=== PATIENT | female | born 1955 | race Caucasian/White ===

== ENCOUNTER → 2016-12-21 | Outpatient (CLI) | payer OTHER ==
[~2016-12-21] MED LIST: ACETAMINOPHEN325 M1 PO; ALPRAZOLAM ER1 MG PO; ALPRAZOLAM1 MG PO; AMANTADINE100 M1 PO; AMBIEN 5 MG TABL5 M1 PO; AMOXICILLIN875 MG PO; ANALPRAM-HC 2.530 GM RE; ASPIRIN EC325 M1 PO; ASPIRIN325 PO; ASPIRIN325 SL; AUGMENTIN 875875 MG PO; BACTRIM DS TAB1 EACH PO; BENTYL 20 MG TA20 M1 PO; BISACODYL SUPP10 MG RE; BUTALB-ACETAMI1 EAC2 PO; CALCIUM CARBON500 M3 PO; CHLORDIAZEPOXID25 M1 PO; CLEOCIN HCL300 MG PO; COLACE 100 MG100 MG PO; COLACE100 MG PO; COUMADIN 1MG TAB1 M1 PO; COUMADIN 4 MG TA4 M1 PO; COUMADIN 5 MG TA5 M1; COUMADIN7.5 MG PO; CYMBALTA60 MG PO; DAYPRO600 MG PO; DEEP SEA NASAL44 M1 NS; DESYREL100 MG PO; DESYREL50 MG PO; DETROL LA4 MG PO; DITROPAN XL10 M1 PO; DOLOPHINE HCL10 MG PO; DUONEB 2.5-0.5 M3 ML; ENOXAPARIN100 MG/11 SUBQ; ENOXAPARIN80 MG/0.8 SUBQ; FLEXERIL PO; FOSAMAX 70 MG T70 MG PO; GENTAMICIN SU3 MG/ML OPHTHALMIC; GLYCOLAX POWDER17 G1 PO; GLYCOLAX255 GM PO; HYDROCODON-ACE1 EAC7 PO; KEFLEX500 M1 PO; KEFLEX500 MG PO; LEVAQUIN 500 M500 MG PO; LOPRESSOR25 PO; MAG DELAY64 MG PT; MAGOX 400400 MG; METHADONE; METHADONE HCL 110 M1 PO; MIRALAX17 GM PO; NORCO 5-325 TA1 EACH PO; ORAMORPH SR30 M1 PO; PERCOCET 10-321 EACH PO; PERCOCET 5-3251 EACH PO; PREDNISONE 10 M10 M1 PO; PROAIR HFA8.5 GM IH; PROMETHAZINE-C120 ML PO; PROTONIX40 M2 PO; ROBAXIN 750 MG750 M1 PO; SANCTURA20 MG PO; SAVELLA12.5 MG PO; SENNA PO; SEROQUEL 25 MG25 MG PO; SUBOXONE 8 MG-1 EAC2 PO; TRAZODONE 150150 M1 PO; TRAZODONE HCL100 MG PO; ULTRA-LIGHT RO1 EACH MC; VENTOLIN HFA 1818 GM INH; VITAMIN B-12100 MC1 PO; VITAMIN C500 M1 PO; VITAMIN D 5050000 I1 PO; VITAMIN D1000 UNI1 PO; XANAX 0.5 MG0.5 M1 PO
== END ==
LOC: ULTRA 15:06
DX: M79.89 Other specified soft tissue disorders (principal); M79.604 Pain in right leg

== ENCOUNTER 2017-02-13 18:38 | Emergency (ER) | payer OTHER ==
[~2017-02-13] VITALS: Ht 152.4 cm; Wt 65.8 kg
[2017-02-13 20:42] VITALS: BP 171/106
== END 2017-02-13 20:43 | disposition home or self-care (01) ==
LOC: ER 18:38
DX: S81.811A Laceration without foreign body, right lower leg, initial encounter (principal); G35 Multiple sclerosis; M06.9 Rheumatoid arthritis, unspecified; G43.909 Migraine, unspecified, not intractable, without status migrainosus; K21.9 Gastro-esophageal reflux disease without esophagitis; F32.9 Major depressive disorder, single episode, unspecified; F41.9 Anxiety disorder, unspecified; N19 Unspecified kidney failure; Z87.891 Personal history of nicotine dependence; W45.8XXA Other foreign body or object entering through skin, initial encounter; Y93.89 Activity, other specified; Y92.89 Other specified places as the place of occurrence of the external cause; Y99.9 Unspecified external cause status

== ENCOUNTER 2017-07-29 20:15 | Emergency (ER) | payer OTHER ==
[~2017-07-29] VITALS: Ht 157.5 cm; Wt 68.0 kg
[~2017-07-29 20:15] MED LIST changes: +ACETAMINOPHEN-1 EAC1 PO; +LAMICTAL 25 MG25 M1 PO; +NITROGLYCERIN0.4 MG SUBLING
[2017-07-29 22:01] VITALS: BP 146/84
== END 2017-07-29 22:01 | disposition home or self-care (01) ==
LOC: ER 20:15
DX: S81.811A Laceration without foreign body, right lower leg, initial encounter (principal); G35 Multiple sclerosis; M06.9 Rheumatoid arthritis, unspecified; F32.9 Major depressive disorder, single episode, unspecified; F41.9 Anxiety disorder, unspecified; G43.909 Migraine, unspecified, not intractable, without status migrainosus; K21.9 Gastro-esophageal reflux disease without esophagitis; Z86.711 Personal history of pulmonary embolism; Z86.718 Personal history of other venous thrombosis and embolism; Z86.14 Personal history of Methicillin resistant Staphylococcus aureus infection; Z96.642 Presence of left artificial hip joint; Z87.442 Personal history of urinary calculi; Z87.891 Personal history of nicotine dependence; W26.9XXA Contact with unspecified sharp object(s), initial encounter; Y93.89 Activity, other specified; Y92.89 Other specified places as the place of occurrence of the external cause; Y99.8 Other external cause status

== ENCOUNTER 2017-08-20 18:22 | Emergency (ER) | payer OTHER ==
[~2017-08-20] VITALS: Ht 152.4 cm; Wt 70.3 kg
[2017-08-20 18:52] LABS: URINE BILIRUBIN NEGATIVE (Negative); URINE BLOOD NEGATIVE (Negative); URINE COLOR YELLOW; URINE GLUCOSE-RANDOM* NEGATIVE (Negative); URINE KETONES NEGATIVE (Negative); URINE NITRITE NEGATIVE (Negative); URINE PROTEIN (DIPSTICK) TRACE (Negative); URINE SPECIFIC GRAVITY >= 1.030 (1.003-1.035); URINE UROBILINOGEN 0.2 E.U./dl (0.2-1.0)
[2017-08-20] MEDS ORDERED: COUMADIN 4 MG TA4 M1 PO (18:53)
[2017-08-20 19:13] LABS: ABSOLUTE NEUTROPHILS 3.7 thou/uL (1.4-8.2); BASOPHILS 0.7 % (0.0-2.0); EOSINOPHILS 0.3 % (0.0-3.0); HEMATOCRIT 40.6 % (37.0-47.0); HEMOGLOBIN 13.6 gm/dL (12.0-15.0); LYMPHOCYTES 23.2 % (24.0-44.0); MCH 31.9 pg (26.0-34.0); MCHC 33.5 g/dL (28.0-37.0); MCV 95.1 fL (80.0-100.0); MONOCYTES 6.6 % (1.0-8.0); PLATELET COUNT 130 thou/uL (150-400); POLYS 69.2 % (36.0-66.0); RBC 4.27 mil/uL (4.20-5.00); RDW 14.2 % (10.5-14.5); WBC 5.3 thou/uL (4.0-11.0)
[2017-08-20 19:14] LABS: MANUAL DIFF NO
[2017-08-20 19:57] LABS: ALBUMIN 3.4 g/dL (3.4-5.0); CALCIUM 7.7 mg/dL (8.5-10.1); CREATININE 0.7 mg/dL (0.6-1.0); POTASSIUM 4.2 mmol/L (3.5-5.1); TOTAL BILIRUBIN 0.3 mg/dL (<0.1-1.0); TOTAL PROTEIN 5.5 g/dL (6.4-8.2)
[2017-08-20 21:27] VITALS: BP 121/78
== END 2017-08-20 21:27 | disposition home or self-care (01) ==
LOC: ER 18:22
PROVIDERS: Physician Assistant
DX: G43.909 Migraine, unspecified, not intractable, without status migrainosus (principal); G35 Multiple sclerosis; M06.9 Rheumatoid arthritis, unspecified; F32.9 Major depressive disorder, single episode, unspecified; F41.9 Anxiety disorder, unspecified; K21.9 Gastro-esophageal reflux disease without esophagitis; Z86.711 Personal history of pulmonary embolism; Z86.718 Personal history of other venous thrombosis and embolism; Z86.14 Personal history of Methicillin resistant Staphylococcus aureus infection; Z96.642 Presence of left artificial hip joint; Z87.442 Personal history of urinary calculi; Z87.891 Personal history of nicotine dependence

== ENCOUNTER 2018-06-02 13:23 | Emergency (ER) | payer OTHER ==
[~2018-06-02] VITALS: Ht 160 cm; Wt 68.0 kg
--- NOTE | ~2018-06-02 | EKG ---
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
[~2018-06-02 13:23] MED LIST changes: +LIDOCAINE1 EACH TRANSDERM
[2018-06-02 13:57] LABS: ABSOLUTE NEUTROPHILS 1.5 thou/uL (1.4-8.2); BASOPHILS 1.5 % (0.0-2.0); EOSINOPHILS 0.3 % (0.0-3.0); HEMOGLOBIN 13.9 gm/dL (12.0-15.0); LYMPHOCYTES 44.7 % (24.0-44.0); MCH 30.4 pg (26.0-34.0); MCHC 33.1 g/dL (28.0-37.0); MCV 91.8 fL (80.0-100.0); MONOCYTES 7.2 % (1.0-8.0); PLATELET COUNT 205 thou/uL (150-400); POLYS 46.3 % (36.0-66.0); RBC 4.57 mil/uL (4.20-5.00); WBC 3.2 thou/uL (4.0-11.0)
[2018-06-02 14:12] LABS: APTT 58.3 Seconds (24.5-32.8); INR 4.5; PROTIME 45.4 Seconds (9.3-11.4)
[2018-06-02 14:14] LABS: CALCIUM 8.3 mg/dL (8.5-10.1); CREATININE 1.1 mg/dL (0.6-1.0)
[2018-06-02 14:45] LABS: URINE BILIRUBIN NEGATIVE (Negative); URINE BLOOD NEGATIVE (Negative); URINE CLARITY CLEAR; URINE COLOR YELLOW; URINE GLUCOSE-RANDOM* NEGATIVE (Negative); URINE KETONES NEGATIVE (Negative); URINE LEUKOCYTES NEGATIVE (Negative); URINE NITRITE NEGATIVE (Negative); URINE PROTEIN (DIPSTICK) NEGATIVE (Negative); URINE SPECIFIC GRAVITY 1.025 (1.005-1.035); URINE UROBILINOGEN 0.2 E.U./dl (0.2-1.0)
[2018-06-02 17:50] VITALS: BP 118/76
== END 2018-06-02 18:41 | disposition home or self-care (01) ==
LOC: ER 13:23
PROVIDERS: Emergency Medicine
DX: R41.82 Altered mental status, unspecified (principal); E86.0 Dehydration; F32.9 Major depressive disorder, single episode, unspecified; G35 Multiple sclerosis; M06.9 Rheumatoid arthritis, unspecified; F41.9 Anxiety disorder, unspecified; G43.909 Migraine, unspecified, not intractable, without status migrainosus; K21.9 Gastro-esophageal reflux disease without esophagitis; Z87.891 Personal history of nicotine dependence

== ENCOUNTER 2018-08-21 18:53 | Emergency (ER) | payer OTHER ==
[~2018-08-21] VITALS: Ht 152.4 cm; Wt 67.1 kg
[~2018-08-21 18:53] MED LIST changes: +DOXEPIN 10 MG C10 MG PO
[2018-08-21] MEDS ORDERED: NORCO 10-325 T1 EACH PO (22:07)
[2018-08-21] MEDS ORDERED: ONDANSETRON HCL4 M2 PO (22:18)
[2018-08-21 22:50] VITALS: BP 119/70
== END 2018-08-21 22:00 | disposition home or self-care (01) ==
LOC: ER 18:53
DX: S60.222A Contusion of left hand, initial encounter (principal); M06.9 Rheumatoid arthritis, unspecified; M25.532 Pain in left wrist; Z87.891 Personal history of nicotine dependence; Z86.718 Personal history of other venous thrombosis and embolism; Z96.642 Presence of left artificial hip joint; F32.9 Major depressive disorder, single episode, unspecified; F41.9 Anxiety disorder, unspecified; G43.909 Migraine, unspecified, not intractable, without status migrainosus; K21.9 Gastro-esophageal reflux disease without esophagitis; Z87.442 Personal history of urinary calculi; W01.0XXA Fall on same level from slipping, tripping and stumbling without subsequent striking against object, initial encounter; Y92.89 Other specified places as the place of occurrence of the external cause; Y93.89 Activity, other specified; Y99.8 Other external cause status

== ENCOUNTER 2019-04-30 12:49 | Emergency (ER) | payer OTHER ==
[~2019-04-30] VITALS: Ht 152.4 cm; Wt 68.0 kg
[~2019-04-30 12:49] MED LIST changes: +NORCO 10-325 T1 EACH PO; +ONDANSETRON HCL4 M2 PO
[2019-04-30] MEDS ORDERED: ONDANSETRON HCL4 M2 PO (16:16)
[2019-04-30 16:40] VITALS: BP 120/77
== END 2019-04-30 16:27 ==
LOC: ER 12:49
DX: M25.552 Pain in left hip (principal); R11.0 Nausea; G35 Multiple sclerosis; F32.9 Major depressive disorder, single episode, unspecified; F41.9 Anxiety disorder, unspecified; G43.909 Migraine, unspecified, not intractable, without status migrainosus; K21.9 Gastro-esophageal reflux disease without esophagitis; Z87.891 Personal history of nicotine dependence; Z86.711 Personal history of pulmonary embolism; Z86.718 Personal history of other venous thrombosis and embolism; M06.9 Rheumatoid arthritis, unspecified; Z86.14 Personal history of Methicillin resistant Staphylococcus aureus infection; Z96.642 Presence of left artificial hip joint; Z87.442 Personal history of urinary calculi

== ENCOUNTER 2019-12-04 19:59 | Emergency (ER) | payer OTHER ==
[~2019-12-04] VITALS: Ht 149.9 cm; Wt 70.3 kg
[2019-12-04 21:30] LABS: HEMATOCRIT 38.8 % (37.0-47.0); HEMOGLOBIN 12.6 gm/dL (12.0-15.0); MCH 30.2 pg (26.0-34.0); MCHC 32.4 g/dL (28.0-37.0); MCV 93.2 fL (80.0-100.0); RBC 4.16 mil/uL (4.20-5.00); RDW 14.6 % (10.5-14.5); WBC 4.6 thou/uL (4.0-11.0)
[2019-12-04 21:36] LABS: CALCIUM 9.7 mg/dL (8.5-10.1); POTASSIUM 3.7 mmol/L (3.5-5.1)
[2019-12-04 21:53] LABS: PROTIME 80.7 Seconds (9.3-11.4)
[2019-12-04 22:03] LABS: INR 7.8
[2019-12-05 00:22] VITALS: BP 108/83
== END 2019-12-05 00:25 | disposition home or self-care (01) ==
LOC: ER 19:59
PROVIDERS: Emergency Medicine
DX: S00.03XA Contusion of scalp, initial encounter (principal); M54.2 Cervicalgia; R79.1 Abnormal coagulation profile; K21.9 Gastro-esophageal reflux disease without esophagitis; G43.909 Migraine, unspecified, not intractable, without status migrainosus; G35 Multiple sclerosis; M06.9 Rheumatoid arthritis, unspecified; F32.9 Major depressive disorder, single episode, unspecified; F41.9 Anxiety disorder, unspecified; Z86.14 Personal history of Methicillin resistant Staphylococcus aureus infection; Z96.642 Presence of left artificial hip joint; Z86.711 Personal history of pulmonary embolism; Z86.718 Personal history of other venous thrombosis and embolism; Z87.442 Personal history of urinary calculi; Z87.891 Personal history of nicotine dependence; W18.39XA Other fall on same level, initial encounter; Y93.89 Activity, other specified; Y92.89 Other specified places as the place of occurrence of the external cause; Y99.8 Other external cause status

== ENCOUNTER 2020-01-02 08:57 | Inpatient (IN) | payer OTHER ==
[~2020-01-02] VITALS: Ht 152.4 cm; Wt 81.0 kg
[2020-01-02 08:58] VITALS: BP 161/76
[2020-01-02 09:22] LABS: ABSOLUTE NEUTROPHILS 4.1 thou/uL (1.4-8.2); BASOPHILS 0.7 % (0.0-2.0); EOSINOPHILS 0.4 % (0.0-3.0); HEMATOCRIT 40.8 % (37.0-47.0); HEMOGLOBIN 13.3 gm/dL (12.0-15.0); LYMPHOCYTES 24.5 % (24.0-44.0); MCH 30.3 pg (26.0-34.0); MCHC 32.5 g/dL (28.0-37.0); MCV 93.3 fL (80.0-100.0); MONOCYTES 6.6 % (1.0-8.0); PLATELET COUNT 207 thou/uL (150-400); POLYS 67.8 % (36.0-66.0); RBC 4.38 mil/uL (4.20-5.00); RDW 14.6 % (10.5-14.5)
[2020-01-02] MEDS ORDERED: COUMADIN 5 MG TA5 M1 PO (09:29)
[2020-01-02] MEDS ORDERED: FLEXERIL PO (09:31)
[2020-01-02 09:32] LABS: CALCIUM 9.1 mg/dL (8.5-10.1); CREATININE 0.9 mg/dL (0.6-1.0)
[2020-01-02 09:43] LABS: APTT 51.6 Seconds (24.5-32.8)
[2020-01-02 09:45] LABS: INR 5.6
[2020-01-02 11:14] VITALS: BP 139/81
[2020-01-02] MEDS ORDERED: PROTONIX40 M1 PO (15:38)
[2020-01-02] MEDS ORDERED: FIBER GUMMIES1 EACH PO (15:41)
[2020-01-02] MEDS ORDERED: SLOW-MAG64 M1 PO (15:44)
--- NOTE | 2020-01-02 18:45 | NUR ---
PT RECEIVED AT 1445 FROM THE ER ALERT AND IN NO ACUTE DISTRESS. ASSESSED AND ORIENTED TO UNIT. DR. BLISS NOTIFIED PT IN ROOM AND NEW ORDERS OBTAINED. CONSULT CALLED TO DR. DE LA CRUZ. PT WENT FOR CT ABD TO CHECK FOR BLEEDING AND WAS NEGATIVE. IV DILAUDID GIVEN FOR PAIN.
[2020-01-02 22:00] VITALS: BP 114/62
[2020-01-03 04:40] VITALS: BP 109/71
--- NOTE | 2020-01-03 06:05 | NUR ---
ASSUMED PT CARE AT 1900. PT REPORTS SEVERE PAIN 09/03. DR DE LA CRUZ UP TO SEE PT, RESTARTED HOME MEDS. PT TAKES METHADONE TID FOR YEARS, ITS WHAT WORKS BEST FOR HER CHRONIC PAIN. PAIN MEDS GIVEN, PROVIDED SOME RELIEF. GIVEN A SANDWICH, PT TOLERATED WELL. FAMILY AT BEDSIDE AT BEGINNING OF SHIFT. PT NOW SLEEPING IN BED, WILL CONTINUE TO MONITOR.
[2020-01-03 06:10] LABS: HEMATOCRIT 38.2 % (37.0-47.0); HEMOGLOBIN 12.3 gm/dL (12.0-15.0); MCH 30.3 pg (26.0-34.0); MCHC 32.1 g/dL (28.0-37.0); MCV 94.3 fL (80.0-100.0); RBC 4.05 mil/uL (4.20-5.00); RDW 15.6 % (10.5-14.5); WBC 6.1 thou/uL (4.0-11.0)
[2020-01-03 06:16] LABS: PROTIME 11.3 Seconds (9.3-11.4)
[2020-01-03 06:40] LABS: INR 1.1
[2020-01-03 06:49] LABS: CREATININE 0.8 mg/dL (0.6-1.0); MAGNESIUM 1.6 mg/dL (1.8-2.4); PHOSPHORUS 4.2 mg/dL (2.5-4.9); POTASSIUM 4.4 mmol/L (3.5-5.1)
[2020-01-03 09:09] VITALS: BP 122/71
--- NOTE | 2020-01-03 14:30 | NUR ---
PT ASSESSED AT START OF SHIFT. STATES SHE'S FEELING A LITTLE BIT BETTER TODAY AND CAN TELL IT'S GETTING EASIER TO TAKE DEEPER BREATHS. DR. BLISS IN THIS AM TO SEE PT AND TOLD HER SHE COULD GO HOME TOMORROW AND WOULD RESTART HER COUMADIN DOSE TODAY. ENC PT TO USE WALKER WHEN UP AND SHE STATES IT DOES HELP TO USE IT. EATING AND DRINKING WELL. TRANSFERRED TO [facility] RM 407 PER W/C W/ ALL BELONGINGS AT THIS TIME.
[2020-01-03 19:50] VITALS: BP 124/72
--- NOTE | 2020-01-03 20:25 | NUR ---
PT TRANSFERRED TO UNIT VIA WHEELCHAIR BY 4S UNIT STAFF. FALL PRECAUTIONS IMPLEMENTED. DISCUSSED PAIN MANAGEMENT WITH PATIENT. NOTIFIED PROVIDER THAT PAIN MEDICATION NOT RESOLVING PAIN, ORDERS RECEIVED AND IMPLEMENTED. PT REPORTS PAIN MANAGED AND IMPROVED WITH NEW ORDERS. PT UP WITH 1 PERSON ASSIST TO BATHROOM USING WALKER. CALLS FOR ASSIST APPROPRIATELY.
--- NOTE | 2020-01-04 04:44 | NUR ---
PATIENT ALERT AND ORIENTED X4. UP WITH ONE ASSIST TO BATHROOM WITH WALKER. MEDICATED FOR PAIN, ANXIETY AND GIVEN A MUSCLE RELAXER DURING THE NIGHT. COOPERATIVE AND PLEASANT. SUTURES REMAIN IN PLACE UNDER HER CHIN, STATED THAT THEY ARE STARTING TO ITCH. IVF INFUSING W/O COMPLICATION. COUMADIN WAS ON HOLD AND IS BEING MONITORED. RESTING QUIETLY AT TIME OF NOTE. WILL MONITOR.
[2020-01-04 07:16] VITALS: BP 110/78
[2020-01-04] MEDS ORDERED: MIRALAX17 GM PO (10:18)
[2020-01-04] MEDS ORDERED: OXYCODONE-APAP1 TAB PO (10:18)
--- NOTE | 2020-01-04 16:54 | NUR ---
PT IS AOX4, UP AND OUT ON UNIT AMBULATING WITH STAFF AND PHYSICAL THERAPY. PT VSS, GENERALIZED PAIN BUE, PAIN CONTROLLED WITH ORAL ANALGESIC MED. PT IV FLUIDS WERE DISCONTINUED AND IV WAS REMOVED. PT RECEIVED DISCHARGE INSTRUCTIONS AND VERBALIZED UNDERSTANDING. PT UNABLE TO GO HOME UNTIL HER SON GETS OFF WORK AND PICKS HER UP. FALL PRECAUTIONS ARE IN PLACE. CALL LIGHT/PERSONAL ITEMS ARE IN REACH. WILL CONTINUE TO MONITOR.
--- NOTE | 2020-01-04 17:17 | NUR ---
INITIAL ASSESSMENT: SW reviewed chart and spoke with nursing and attending physician. Pt was admitted from home after a fall. Pt sustained a chin laceration. Pt may discharge home later today. SW met with pt at bedside. Introduced role of SW. Pt is alert/orientated x 4. Pt reports she lives at home with her son and his family. Prior to admission, pt was independent with ADLs. No use of DME. No hx of services or post-acute placement. Pt's PCP is Dr. Hood Nelson. Pt is agreeable with discharge plan. Pt stated she needed transportation home. However, pt does not have her keys to get inside. Pt's son to provide transportation this evening. No additional discharge needs identified at this time, but is available to assist should needs arise.
[2020-01-04 18:27] VITALS: BP 175/89
[2020-01-04 20:45] VITALS: BP 175/89
--- NOTE | 2020-01-06 12:33 | EKG ---
[facility] [employer] [place] [address] ELECTROCARDIOGRAM REPORT Name: MONTSE CONTRERAS Room #: 407-P [facility] IN M.R.#: [id number] Admission: 01/02/20 Attend Phys: Chaim Lancaster MD Discharge: 01/04/20 Date of : 55 Report #: [id number] THIS REPORT FOR: cc: Hood Nelson MD, Steven E. 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1955 Requested By: Barb Hammond Order Number: [id number] MD: Bernabe Mcconnell Measurements Intervals [place] Rate: 93 P: 65 TN: 146 QRS: 42 QRSD: 78 T: 58 QT: 335 QTc: 417 Interpretive Statements Sinus rhythm No significant abnormality Artifact in lead(s) II,III,aVR,aVL,aVF Compared to ECG 07/13/2018 22:33:38 No significant change was found Electronically Signed On 01-04-2020 7:25:24 STEAM PRESS OPERATOR by Bernabe Mcconnell [email or web address] <ELECTRONICALLY SIGNED> By: Bernabe Mcconnell MD, [facility] 01/04/20 0725 7 7 Bernabe Mcconnell MD, [facility] /EPI
== END 2020-01-04 21:45 | disposition home or self-care (01) | DRG 605 ==
LOC: ER 08:57 → 4N 10:51 → 4S 10:51 → EROBS 10:51 → 4S 14:38 → 4N 01-03 13:55
PROVIDERS: Emergency Medicine; Internal Medicine; ADMIT Surgery
PROC: 0HQ1XZZ Repair Face Skin, External Approach (ICD-10-PCS; principal; 2020-01-02)
DX: S01.81XA Laceration without foreign body of other part of head, initial encounter (principal); G35 Multiple sclerosis; M06.9 Rheumatoid arthritis, unspecified; Z96.642 Presence of left artificial hip joint; F32.9 Major depressive disorder, single episode, unspecified; F41.9 Anxiety disorder, unspecified; R07.9 Chest pain, unspecified; G43.909 Migraine, unspecified, not intractable, without status migrainosus; K21.9 Gastro-esophageal reflux disease without esophagitis; W17.89XA Other fall from one level to another, initial encounter; Z96.0 Presence of urogenital implants; Z86.711 Personal history of pulmonary embolism; Z79.01 Long term (current) use of anticoagulants; Z86.718 Personal history of other venous thrombosis and embolism; Z79.891 Long term (current) use of opiate analgesic; Z87.442 Personal history of urinary calculi; Z98.1 Arthrodesis status; Z79.899 Other long term (current) drug therapy; Z87.891 Personal history of nicotine dependence; Y93.89 Activity, other specified; Y99.8 Other external cause status; Y92.013 Bedroom of single-family (private) house as the place of occurrence of the external cause
CPT/HCPCS: 10102; 10790

== ENCOUNTER 2020-02-01 13:05 | Inpatient (IN) | payer OTHER ==
[~2020-02-01] VITALS: Ht 154.9 cm; Wt 79.6 kg
[~2020-02-01 13:05] MED LIST changes: +COUMADIN 5 MG TA5 M1 PO; +FIBER GUMMIES1 EACH PO; +OXYCODONE-APAP1 TAB PO; +PROTONIX40 M1 PO; +SLOW-MAG64 M1 PO
[2020-02-01 13:09] VITALS: BP 118/82
[2020-02-01 13:52] LABS: BASOPHILS 0.5 % (0.0-2.0); EOSINOPHILS 0.1 % (0.0-3.0); HEMATOCRIT 40.8 % (37.0-47.0); HEMOGLOBIN 13.4 gm/dL (12.0-15.0); LYMPHOCYTES 12.1 % (24.0-44.0); MCH 30.9 pg (26.0-34.0); MCHC 32.9 g/dL (28.0-37.0); MCV 93.8 fL (80.0-100.0); MONOCYTES 5.5 % (1.0-8.0); PLATELET COUNT 193 thou/uL (150-400); POLYS 81.8 % (36.0-66.0); RBC 4.35 mil/uL (4.20-5.00); RDW 14.4 % (10.5-14.5); WBC 4.8 thou/uL (4.0-11.0)
[2020-02-01 14:17] LABS: ALBUMIN 3.5 g/dL (3.4-5.0); ANION GAP 13 mmol/L (7-16); BUN 11 mg/dL (7-18); CALCIUM 9.3 mg/dL (8.5-10.1); CHLORIDE 101 mmol/L (98-107); CO2 26 mmol/L (21-32); GLUCOSE 122 mg/dL (74-106); SGOT 25 U/L (15-37); SGPT 26 U/L (30-65); SODIUM 140 mmol/L (136-145); TOTAL BILIRUBIN 0.4 mg/dL (<0.1-1.0); TOTAL PROTEIN 7.3 g/dL (6.4-8.2); TROPONIN-I <0.06 ng/mL (<0.06)
[2020-02-01 14:20] LABS: POTASSIUM 2.9 mmol/L (3.5-5.1)
[2020-02-01 14:34] LABS: URINE BILIRUBIN NEGATIVE (Negative); URINE BLOOD NEGATIVE (Negative); URINE CLARITY CLEAR; URINE COLOR YELLOW; URINE GLUCOSE-RANDOM* NEGATIVE (Negative); URINE KETONES NEGATIVE (Negative); URINE LEUKOCYTES-REFLEX TRACE (Negative); URINE NITRITE-REFLEX NEGATIVE (Negative); URINE PROTEIN (DIPSTICK) NEGATIVE (Negative); URINE SPECIFIC GRAVITY <= 1.005 (1.005-1.035); URINE UROBILINOGEN 0.2 E.U./dl (0.2-1.0)
[2020-02-01 14:38] LABS: INR 1.2; PROTIME 11.9 Seconds (9.3-11.4)
[2020-02-01 14:43] LABS: AMP/METHAMP Negative (Negative); BARBITURATES POSITIVE (Negative); BENZODIAZEPINES Negative (Negative); COCAINE Negative (Negative); METHADONE POSITIVE (Negative); OPIATES Negative (Negative); PCP Negative (Negative)
[2020-02-01 15:06] VITALS: BP 118/82
[2020-02-01 16:38] VITALS: BP 119/793
--- NOTE | 2020-02-01 18:24 | NUR ---
Pt came to unit from ED. Hip fx. A&Ox4. Barraza catheter in place. Pt c/o pain 09/03. Pain med administered. Med rec completed in ED. IV mag+potassium infused. IVF infusing. Admission completed. Will give report to anh MÉNDEZ.
[2020-02-01 19:12] VITALS: BP 124/75
--- NOTE | 2020-02-01 19:40 | NUR ---
190 ASSUMED CARE OF PT AFTER BEDSIDE REPORT 1929 ASSESSMENT COMPLETED, PT RESTING IN BED C/O MUSCLE SPASMS FLEXARIL GIVEN PER MAR, PT REFUSING SCD'D STATING SHE CAN'T TOLERATE THEM, DISCUSSED RISKS WITH HER. PT MOVING BOTH FEET EVERY HOUR, PEDAL PULSES PALPABLE AND SENSATION INTACT BILATERALLY, LARGE BRUISE TO INSIDE OF LEFT LOWER LEG. PT AWAKE ALERT AND ORIENTED X3, FALL PRECAUTIONS IN PLACE, WILL CONTINUE TO MONITOR WITH HOURLY ROUNDING, PT IS ABLE TO CHANGE POSITIONS HERSELF Q 2 HOURS. PT ENCOURAGED TO COUGH AND DEEP BREATHE 1 TIME PER HOUR.
[2020-02-01 20:15] VITALS: BP 117/71
[2020-02-02 04:35] VITALS: BP 140/77
[2020-02-02 05:59] LABS: BASOPHILS 0.6 % (0.0-2.0); EOSINOPHILS 0.9 % (0.0-3.0); HEMATOCRIT 37.1 % (37.0-47.0); HEMOGLOBIN 11.9 gm/dL (12.0-15.0); MCH 30.5 pg (26.0-34.0); MCHC 32.1 g/dL (28.0-37.0); MONOCYTES 8.5 % (1.0-8.0); PLATELET COUNT 190 thou/uL (150-400); RBC 3.91 mil/uL (4.20-5.00); RDW 14.9 % (10.5-14.5); WBC 5.4 thou/uL (4.0-11.0)
[2020-02-02 06:15] LABS: CREATININE 0.8 mg/dL (0.6-1.0); MAGNESIUM 1.7 mg/dL (1.8-2.4)
[2020-02-02 06:32] LABS: POTASSIUM 4.3 mmol/L (3.5-5.1)
[2020-02-02 08:39] VITALS: BP 120/77
--- NOTE | 2020-02-02 14:58 | NUR ---
Assumed care of pt at 0700. Patient alert and oriented x4. Methadone restarted. IVF infusing. Per ortho note, no surgery needed. Barraza catheter in place. Dilaudid changed to q8h prn. Patient worked with physical therapy. Physical therapist not clear on pt weight bearing status. Will notify ortho. Refuses SCDs. Call light within reach. Will continue to monitor.
--- NOTE | 2020-02-02 15:13 | NUR ---
PT ADMITTED RELATED TO LT HIP PERIPROSTHETIC FX, NO SURGERY. CM REVIEWED CHART AND SPOKE WITH CARE TEAM. CM MET WITH PT AT BEDSIDE THIS DAY. PT IS A&O X4. CM ROLE INTRODUCED. PT INDICATED SHE LIVES IN A HOUSE WITH HER SON AND HIS FAMILY. PT INDICATED THAT THERE ARE 2 STEPS TO ENTER AND NO STEPS SHE USED INSIDE. PT INDICATED SHE HAS A FWW BUT IT'S OLD, SHE WOULD LIKE A NEW ONE ISSUED IF SHE DISCHARGES HOME. PT INIDCATED SHE HAD USED [facility] AND SHE THINKS SHE HAD DONE OP PT HERE AT [facility] IN THE PAST WELL. AWAITING THERAPY RECOMMENDATIONS TO SEE TO WHAT'S APPROPRIAT UPON DC. CM TO FOLLOW INDICATED WITH DC PLANNING.
[2020-02-02 16:20] VITALS: BP 113/75
[2020-02-02 20:30] VITALS: BP 134/83
--- NOTE | 2020-02-03 00:39 | NUR ---
ASSESSMENT COMPLETED.PT IS PLEASANT. TRIES TO SHIFT SELF IN BED. MAR IN PLACE. PAIN WELL MANAGED BY THE DIULADID AND MUSCLE RELAXER. FALL PREC IN PLACE. CALLS APPROPRIATELY.
[2020-02-03 04:00] VITALS: BP 116/71
[2020-02-03 07:36] VITALS: BP 133/85
--- NOTE | 2020-02-03 12:07 | NUR ---
CARE TEAM RECOMMENDING SHORT TERM POST ACUTE CARE STAY. CM PROVIDE PT WIT [facility] LIST THIS AM AND SHE ASKED THAT REFERRALS BE SENT TO [facility] AND [facility] FOR REVIEW FOR POSSIBLE ADMISSION. CM AWAITING OT EVAL TO FAX REFERRAL. CM TO FOLLOW INDICATED WITH DC PLANNING.
--- NOTE | 2020-02-03 14:56 | NUR ---
Assumed care of pt at 0700. Pt a&ox4. Pain controlled with prn pain meds. Pt worked with physical therapy and ocupational therapy. Pt refuses SCDs. Partial weight bearing on left lower extremity. Call light within reach. Fall precautions in place. Will continue to monitor.
--- NOTE | 2020-02-03 15:44 | NUR ---
[facility] RECEIVED REFERRAL. INDICATED THEY COULD ACCEPT PT CLINICALLY THEY ARE RUNNING BENEFITS AND STARTING AUTH. CM TO FOLLOW INDICATED WITH DC PLANNING.
[2020-02-03 16:40] VITALS: BP 133/87
[2020-02-03 19:35] VITALS: BP 111/60
[2020-02-03 20:55] VITALS: BP 119/78
[2020-02-04 05:22] LABS: INR 1.1; PROTIME 10.8 Seconds (9.3-11.4)
[2020-02-04 05:32] LABS: HEMATOCRIT 36.2 % (37.0-47.0); HEMOGLOBIN 11.6 gm/dL (12.0-15.0); MCH 30.6 pg (26.0-34.0); MCHC 32.1 g/dL (28.0-37.0); MCV 95.4 fL (80.0-100.0); RBC 3.79 mil/uL (4.20-5.00); RDW 14.7 % (10.5-14.5); WBC 4.5 thou/uL (4.0-11.0)
[2020-02-04 05:40] LABS: CALCIUM 8.5 mg/dL (8.5-10.1); CREATININE 0.7 mg/dL (0.6-1.0); POTASSIUM 4.5 mmol/L (3.5-5.1)
--- NOTE | 2020-02-04 05:52 | NUR ---
ASSUMED PT CARE AT 1900. PT WAS A CANDIDATE FOR [facility], INFORMED HER AND PT WAS HAPPY TO GO. REPORT GIVEN TO DEV BARRERA AROUND 1900. PT TRANSPORTED WITH ALL BELONGINGS.
--- NOTE | 2020-02-04 06:12 | NUR ---
Pt transferred from 4S a7 1999 via bed. A/OX4,pleasant. VSS. C/o pain to left hip 06/03 medicated with oral analgesics with relief reported. Pt has a mercado to DD with light yellow urine. Pt working towards discharge and particapated in PT yesterday and can get up min AX1,GB/RW w/WBAT to LLE. Fall precautions in place, pt calls approp for help. Will contine to monitor pt.
[2020-02-04 09:59] VITALS: BP 140/88
--- NOTE | 2020-02-04 10:06 | NUR ---
PT ALERT XS 4. TOOK AM MEDS INCLUDING PRN PAIN MED. PT WORKING WITH THERAPY. PT UP WITH WALKER. PLEASANT AND COOPERATIVE WITH CARE.
--- NOTE | 2020-02-04 12:36 | NUR ---
LONNY reviewed chart and spoke with nursing and attending physician. Pt was transferred to [facility] and is progressing towards goals for discharge to [facility]. Awaiting insurance authorization at this time. LONNY received COVID-19 form from [facility] requesting to be completed and faxed back. LONNY met with pt at bedside to complete form and to provide update regarding discharge. Pt is aware and in agreement with discharge plan. LONNY faxed completed COVID-19 form, nursing assessment and updated PT not to [facility]. LONNY is following to assist as needed with discharge planning.
--- NOTE | 2020-02-04 14:52 | NUR ---
PT RESTING IN BED ALERT XS4 PT GIVEN PRN PAIN MED. PT ATE BREAKFAST AND LUNCH APPETITE GOOD ATE 75 % of MEALS PT WORKING WITH THERAPIES. MAR CATH DCD AND PATIENT IS WALKING TO BATHROOM WITH STEADY GAIT TO URINATE. PT PLEASANNT AND COOPERATIVE WITH CARE.
--- NOTE | 2020-02-04 15:10 | NUR ---
FAXED TODAY'S PT/OT NOTES SPOKE WITH CATE IN ADM SHE RECEIVED UPDATES AND WILL SUBMIT THEM FOR AUTH.
[2020-02-04 19:18] VITALS: BP 110/64
--- NOTE | 2020-02-05 00:11 | NUR ---
ASSESSMENT COMPLETED. PT IS VERY PLEASANT. MAKES NEEDS KNOWN. UP WITH SBA TO THE BATHROOM, SHE USES A ROLLER WALKER. C/O LEFT HIP PAIN-PAIN CONTROL IS GOOD WITH REGIMEN IN PLACE. AFEBRILE. BM EARLIER IN DAY. REFUSED SOME OF HER LAXATIVES TONIGHT. NO FURTHER CONCERNS.
[2020-02-05 07:27] VITALS: BP 122/81
[2020-02-05 13:31] VITALS: BP 122/81
[2020-02-05] MEDS ORDERED: OXYCODONE HCL10 MG PO (13:33)
[2020-02-05 14:00] VITALS: BP 122/81
[2020-02-05 14:01] VITALS: BP 122/81
[2020-02-05 15:03] VITALS: BP 128/72
--- NOTE | 2020-02-05 15:26 | NUR ---
PT IS NOW DISCHARGING TODAY TO HOME WITH HH FAXED REFERRAL TO [facility] SPOKE WITH JUMANA IN INTAKE SHE RECEIVED REFERRAL AND CAN ACCEPT. FAXED DC ORDERSS/SUMMARY AND RECEIVED CONFIRMATION AND SPOKE WITH JUMANA IN INTAKE AND SHE WILL NOTIFY PT TIME OF VISITS.
--- NOTE | 2020-02-05 16:27 | NUR ---
DISCHARGE NOTE: SW reviewed chart and spoke with nursing and attending physician. Pt states she is wanting to return home with HH instead of going to a SNF due to current COVID-19. SW met with pt at bedside to discuss discharge plan. Pt states she has used [facility] in the past and she would like to use them again. Pt needing a chris roller walker. Pt's family to provide transportation this evening. SW obtained script for roller walker. [facility] [employer] liaison delivered roller walker to pt's room. raw material planner sent referral to [facility], who states they are not in-network with pt's insurance. Referral sent to [facility] , who can accept. Pt updated at bedside and agreeable with discharge plan. Contact info for HH placed in pt's discharge. No additional SW needs identified at this time, but is available to assist should needs arise.
--- NOTE | 2020-02-05 19:31 | NUR ---
ASSUMED CARE OF PATIENT AT 0715, PATIENT ALERT AND ORIENTED X 4. UP WITH ASSIST X 1 WITH GB AND WALKER. PATIENT C/O PAIN WITH LEFT HIP AREA, SHE RCEIVED OXYCODONE AND SCHEDULED METHADONE, SHE ALSO RECEIVED FLEXIRIL THIS AFTERNOON. PT HAD LEFT AC IV IN PLACE, REMOVED PRIOR TO DISCHARGE. VSS THIS SHIFT. ALL DISCHARGE PAPERWORK AND ALL PERSONAL BELONGINGS SENT WITH THE PATIENT. WALKER SENT WITH THE PATIENT.
== END 2020-02-05 19:00 | disposition home health service (06) | DRG 536 ==
LOC: ER 13:05 → EROBS 15:53 → 4S 15:53 → 4N 02-03 20:00
PROVIDERS: Hospitalist; Nurse Practitioner; Physician Assistant; ADMIT Internal Medicine
DX: S79.002A Unspecified physeal fracture of upper end of left femur, initial encounter for closed fracture (principal); W18.39XA Other fall on same level, initial encounter; G35 Multiple sclerosis; Z96.642 Presence of left artificial hip joint; M06.9 Rheumatoid arthritis, unspecified; F32.9 Major depressive disorder, single episode, unspecified; F41.9 Anxiety disorder, unspecified; G43.909 Migraine, unspecified, not intractable, without status migrainosus; K21.9 Gastro-esophageal reflux disease without esophagitis; E87.6 Hypokalemia; E83.42 Hypomagnesemia; R41.3 Other amnesia; F11.90 Opioid use, unspecified, uncomplicated; G89.4 Chronic pain syndrome; Z87.442 Personal history of urinary calculi; Z86.718 Personal history of other venous thrombosis and embolism; Z86.711 Personal history of pulmonary embolism; Z79.01 Long term (current) use of anticoagulants; Z95.828 Presence of other vascular implants and grafts; Y93.89 Activity, other specified; Y92.89 Other specified places as the place of occurrence of the external cause; Y99.8 Other external cause status; Z98.1 Arthrodesis status; Z95.5 Presence of coronary angioplasty implant and graft; Z87.891 Personal history of nicotine dependence; Z82.49 Family history of ischemic heart disease and other diseases of the circulatory system; Z91.81 History of falling; Z79.899 Other long term (current) drug therapy
CPT/HCPCS: 10091; 10195

== ENCOUNTER 2020-09-30 20:22 | Emergency (ER) | payer OTHER ==
[~2020-09-30] VITALS: Ht 147.3 cm; Wt 74.8 kg
[~2020-09-30 20:22] MED LIST changes: +OXYCODONE HCL10 MG PO
[2020-10-01] VITALS: BP 127/86
== END 2020-10-01 00:10 | disposition home or self-care (01) ==
LOC: ER 20:22
DX: S60.212A Contusion of left wrist, initial encounter (principal); S16.1XXA Strain of muscle, fascia and tendon at neck level, initial encounter; S46.012A Strain of muscle(s) and tendon(s) of the rotator cuff of left shoulder, initial encounter; G35 Multiple sclerosis; M06.9 Rheumatoid arthritis, unspecified; G89.4 Chronic pain syndrome; G43.909 Migraine, unspecified, not intractable, without status migrainosus; K21.9 Gastro-esophageal reflux disease without esophagitis; Z79.01 Long term (current) use of anticoagulants; Z79.899 Other long term (current) drug therapy; Z87.891 Personal history of nicotine dependence; W18.39XA Other fall on same level, initial encounter; Y93.89 Activity, other specified; Y92.89 Other specified places as the place of occurrence of the external cause; Y99.8 Other external cause status